=== PATIENT | male | born 1960 | race Caucasian/White ===

== ENCOUNTER → 2022-04-23 | Outpatient (CLI) | payer OTHER ==
[~2022-04-23] MED LIST: ABILIFY 2 MG TAB2 MG PO; ALBUTEROL1.25 MG/3 INH; ASPIRIN81 MG PO; CELEXA40 MG PO; ELIQUIS5 MG PO; FLONASE 0.05% N16 GM; HYDROCHLOROTH12.5 MG PO; HYDROCODON-ACE1 EAC2 PO; HYDROXYZINE HCL25 MG PO; LEVAQUIN750 MG PO; LOSARTAN POTAS100 MG PO; NORCO 7.5-3251 EACH PO; NORVASC10 MG PO; PHYSICIANS1000 MCG/1 INJ; PRILOSEC OTC20 MG PO; SOTALOL80 MG PO; WAL-ZYR10 M1 PO; XANAX0.5 MG PO; ZANTAC PO; ZOCOR20 MG PO
[2022-04-23 15:04] LABS: BUN/CREATININE RATIO 28 (0-10)
== END ==
LOC: ECHO 12:00 → NM 13:00
PROVIDERS: Physician Assistant
DX: I20.9 Angina pectoris, unspecified (principal); I71.2 Thoracic aortic aneurysm, without rupture; I05.0 Rheumatic mitral stenosis; I48.91 Unspecified atrial fibrillation; I42.9 Cardiomyopathy, unspecified; E78.5 Hyperlipidemia, unspecified; I10 Essential (primary) hypertension; G24.9 Dystonia, unspecified
CPT/HCPCS: ECHO; 36415; 71275; 78452; 80048; 93017; 93306; A9502; J2785; Q9967

== ENCOUNTER → 2022-06-29 | Outpatient (CLI) | payer OTHER ==
[~2022-06-29] MED LIST changes: +CITALOPRAM HBR40 MG PO; +FAMOTIDINE20 MG PO; +FLONASE ALLER15.8 ML; +GABAPENTIN300 MG PO; +ISOSORBIDE MONO30 MG PO; +KETOCONAZOLE15 GM TOP; +MECLIZINE HCL25 MG PO; +MONTELUKAST SOD10 MG PO; +NITROGLYCERIN0.4 MG SL; -NORCO 7.5-3251 EACH PO; +OMEPRAZOLE40 MG PO; -PRILOSEC OTC20 MG PO; +SOTALOL120 MG PO; +VALSARTAN320 MG PO
[2022-06-29 10:34] LABS: HEMOGLOBIN 14.3 gm/dl (14.0-17.5); RED BLOOD COUNT 4.75 M/UL (4.20-5.50)
[2022-06-29 11:07] LABS: BUN/CREATININE RATIO 19 (0-10)
== END ==
LOC: RAD 09:36
PROVIDERS: Internal Medicine Cardiovascular Disease
DX: I20.9 Angina pectoris, unspecified (principal); I42.9 Cardiomyopathy, unspecified; I10 Essential (primary) hypertension; I25.10 Atherosclerotic heart disease of native coronary artery without angina pectoris; I05.0 Rheumatic mitral stenosis
CPT/HCPCS: 36415; 71046; 80048; 85025

== ENCOUNTER 2022-07-01 11:05 | Outpatient (CLI) | payer OTHER ==
[~2022-07-01] VITALS: Ht 172.7 cm; Wt 87.2 kg
[~2022-07-01 11:05] MED LIST changes: -CITALOPRAM HBR40 MG PO; -FAMOTIDINE20 MG PO; -FLONASE ALLER15.8 ML; -GABAPENTIN300 MG PO; -ISOSORBIDE MONO30 MG PO; -KETOCONAZOLE15 GM TOP; -MECLIZINE HCL25 MG PO; -MONTELUKAST SOD10 MG PO; -NITROGLYCERIN0.4 MG SL; -SOTALOL120 MG PO; -VALSARTAN320 MG PO
[2022-07-01] MEDS ORDERED: GABAPENTIN300 MG PO (11:59)
[2022-07-01] MEDS ORDERED: FAMOTIDINE20 MG PO (11:59)
[2022-07-01] MEDS ORDERED: ISOSORBIDE MONO30 MG PO (12:00)
[2022-07-01] MEDS ORDERED: MECLIZINE HCL25 MG PO ×2 (12:00→19:15)
[2022-07-01] MEDS ORDERED: VALSARTAN320 MG PO (12:01)
[2022-07-01] MEDS ORDERED: MONTELUKAST SOD10 MG PO (12:01)
[2022-07-01] MEDS ORDERED: NITROGLYCERIN0.4 MG SL (18:07)
[2022-07-01] MEDS ORDERED: CITALOPRAM HBR40 MG PO (19:14)
[2022-07-01] MEDS ORDERED: FLONASE ALLER15.8 ML (19:14)
[2022-07-01] MEDS ORDERED: KETOCONAZOLE15 GM TOP (19:15)
[2022-07-01] MEDS ORDERED: SOTALOL120 MG PO (19:21)
[2022-07-02] MEDS ORDERED: ALPRAZOLAM0.5 MG PO (09:25)
[2022-07-02] MEDS ORDERED: HYDROCODON-ACE1 EAC2 PO (09:26)
== END 2022-07-02 10:31 | disposition home or self-care (01) ==
LOC: CATH 11:05 → PROG CARE 17:13 → CATH 07-02 10:31
DX: I25.118 Atherosclerotic heart disease of native coronary artery with other forms of angina pectoris (principal); I10 Essential (primary) hypertension; E78.5 Hyperlipidemia, unspecified; I49.5 Sick sinus syndrome; I05.0 Rheumatic mitral stenosis; I48.0 Paroxysmal atrial fibrillation; I27.20 Pulmonary hypertension, unspecified; I71.9 Aortic aneurysm of unspecified site, without rupture; Z88.0 Allergy status to penicillin; Z87.891 Personal history of nicotine dependence; Z79.899 Other long term (current) drug therapy
CPT/HCPCS: 99152; 99153; C1751; C1769; C1894; J0153; J0360; J1644; J2250; J3010; Q9967